=== PATIENT | female | born 1990 ===

== ENCOUNTER → 2021-02-27 | Outpatient (CLI) | payer OTHER ==
[~2021-02-27] MED LIST: IBU800 M1 PO; OSCAL 500 TAB500 MG PO; PRENATAL MVI PO; PROCARDIA XL90 MG PO
== END ==
LOC: ZCOL.LAB 10:00
DX: Z20.822 Contact with and (suspected) exposure to COVID-19 (principal)

== ENCOUNTER 2021-02-28 05:53 | Inpatient (IN) | payer OTHER ==
[~2021-02-28] VITALS: Ht 177.8 cm; Wt 100.0 kg
[2021-02-28] VITALS (42 sets, daily range): BP systolic 125–192; BP diastolic 77–121; PULSE 56–118; TEMP 97.9–98.5
--- NOTE | 2021-02-28 06:00 | NUR ---
G1L0. 40-2. Ambulatory to [facility] 6 with spouse. Clean gown on. EFM and TOCO explained and applied. Pt states she thinks her water broke around 0415, clear fluid but states it is pink tinged now. Pt reports no "gush" just a small amount of fluid. Reports contractions every 3-4 mins but states they feel like "mild period cramps." Reports good movement. Plan of care explained. 0610: SVE /-2, forebag felt on exam. Amniotrace positive. 0625: called and updated on pt. See physican notification. Report given to MAYI Lewis.
[2021-02-28] MEDS ORDERED: PRENATAL MVI PO (06:16)
[2021-02-28] MEDS ORDERED: OSCAL 500 TAB500 MG PO (06:17)
[2021-02-28 08:02] LABS: BASO % 0.2 % (0.0-2.0); EOS # 0.1 (0.0-0.7); EOS % 0.6 % (0-4.0); GRAN # 6.2 (1.4-6.5); HEMATOCRIT 36.1 % (37.0-47.0); HEMOGLOBIN 11.4 g/dl (12.5-16.0); LYMPH % 12.9 % (20.0-51.0); MEAN CELL VOLUME 84 fl (80.0-100.0); MEAN CORPUSCULAR HEMOGLOBIN 27 pg (27.0-31.0); MEAN CORPUSCULAR HGB CONC 32 g/dl (33.0-37.0); MEAN PLATELET VOLUME 12.2 fl (7.4-10.4); MONO # 0.8 (0.1-0.6); MONO % 9.8 % (1.7-9.3); PLATELET COUNT 195 K/mm3 (130-400); REDCELL DISTRIBUTION WIDTH-CV 14.6 % (11.5-14.5)
[2021-02-28 08:10] LABS: BILIRUBIN,TOTAL 0.4 mg/dL (0.0-1.0); CALCIUM 8.1 mg/dL (8.4-10.2); CREATININE, serum 0.82 (0.52-1.25); POTASSIUM 4.5 mmol/L (3.4-5.0); TOTAL PROTEIN 5.9 gm/dL (6.4-8.2)
[2021-02-28 08:50] LABS: COLLECTION METHOD CLEAN CATCH
[2021-02-28 09:09] LABS: MUCOUS Present /lpf; PH 6 (5-8); URINE APPEARANCE Hazy; URINE BACTERIA None Seen /hpf; URINE BILIRUBIN Negative (NEGATIVE); URINE BLOOD 2+ (NEGATIVE); URINE COLOR Yellow; URINE GLUCOSE Negative (NEGATIVE); URINE KETONE Negative (NEGATIVE); URINE LEUKOCYTE ESTERASE Trace (NEGATIVE); URINE NITRATE Negative (NEGATIVE); URINE PROTEIN(semi-quant) 2+ (NEGATIVE); URINE RBC 20-50 /hpf; URINE UROBILINOGEN Negative (NEGATIVE)
--- NOTE | 2021-02-28 09:26 | NUR ---
PT REQUESTING EPIDURAL AT THIS TIME. JAN LONG NOTIFIED.
--- NOTE | 2021-02-28 12:44 | NUR ---
0748 - Pt blood pressures continue to remain elevated, 150s/90s-100s. Per Dr. Jaimes's orders, pt given PO Procardia. Pt denies any symptoms of elevated blood pressures. Orders entered to follow Hypertension protocol. 0919 - Blood pressures remain elevated. 160s-190s/90s-100s. Labetalol IV 20mg given per protocol. 0930 - BP repeat 155/89. 1112 - BPs continue in 140s-90s with occasional 150s/90s. 1050 BP 160/92, 1108 BP 170/89. Second dose of IV labetalol at 40mg given at this time. 1125 - BP follow up 137/79.
--- NOTE | 2021-02-28 17:10 | NUR ---
1520 - Pt reports feeling uncomfortable in LL with RLS, reports rectal pressure with contractions. Pt repositioned for cervical check 1528 - SVE 10/100/+1. Dr Jaimes notified, Nursery nurse notified. Pt repositioned for pushing. 1537 - Pt starts pushing with contractions at this time. 1540 - Dr Jaimes to bedside. 1545 - Nursery RN to bedside. 1551 - Viable female infant delivered spontaneously by Dr. Jaimes. placed on mother's abdomen where dried and stimulated. Care of infant assumed by nursery RN. 1554 - Placenta spontaneously delivered by Dr. Jaimes. Pitocin started per protocol at this time. 2nd degree repair performed by Dr. Jaimes, see physician notes. Fundal massage provided, fundus firm, -1, 1 clot expressed with minimal bleeding. Pericare provided, elena ice pack placed, pt repositioned for comfort. Pt denies further needs at this time.
--- NOTE | 2021-02-28 20:15 | NUR ---
2015- Pt up to use restroom. Epidural removed and able to void 400 ml. Assisted with elena care. Ice pack and mesh underwear provided. Clean gown provided. Pt ambulatory to room with no difficulties.
[2021-03-01 03:55] VITALS: BP 131/95; PULSE 79; TEMP 97.9
[2021-03-01 10:15] VITALS: BP 139/93; PULSE 118; TEMP 98
--- NOTE | 2021-03-01 10:26 | NUR ---
Initial visit attempt; Physician with patient. Circular Saw Filer left card offering God's blessings and congratulations for the of their daughter.
[2021-03-01 13:00] VITALS: BP 131/81; PULSE 78
[2021-03-01 20:00] VITALS: BP 140/84; PULSE 90; TEMP 98.1
[2021-03-02 04:00] VITALS: BP 132/84; PULSE 90; TEMP 98.3
[2021-03-02 08:35] VITALS: BP 133/98; PULSE 105; TEMP 97.7
[2021-03-02] MEDS ORDERED: PROCARDIA XL90 MG PO (08:53)
[2021-03-02] MEDS ORDERED: IBU800 M1 PO (08:54)
--- NOTE | 2021-03-02 09:20 | NUR ---
Discharge instructions reviewed with pt and at the bedside. Both verbalized an understanding, agreed with the plan and states no questions or concerns at this time.
== END 2021-03-02 10:30 | disposition home or self-care (01) | DRG 807 ==
LOC: LDRO 05:53 → LDR 06:00 → OB 06:00
PROVIDERS: Obstetrics & Gynecology; ADMIT Obstetrics & Gynecology
PROC: 10E0XZZ Delivery of Products of Conception, External Approach (ICD-10-PCS; principal; 2021-02-28)
PROC: 0KQM0ZZ Repair Perineum Muscle, Open Approach (ICD-10-PCS; 2021-02-28)
DX: O48.0 Post-term pregnancy (principal); Z37.0 Single live birth; O13.3 Gestational [pregnancy-induced] hypertension without significant proteinuria, third trimester; O70.1 Second degree perineal laceration during delivery; O69.81X0 Labor and delivery complicated by cord around neck, without compression, not applicable or unspecified; Z3A.40 40 weeks gestation of pregnancy
CPT/HCPCS: J2590; J7120